=== PATIENT | female | born 1960 | race Caucasian/White ===

== ENCOUNTER → 2018-01-27 | Outpatient (CLI) | payer OTHER | LOC: RAD 01-25 11:47 | DX: Z12.31 Encounter for screening mammogram for malignant neoplasm of breast (principal) ==

== ENCOUNTER → 2018-11-05 | Outpatient (CLI) | payer OTHER | LOC: ULTRA 10:50 | DX: F45.8 Other somatoform disorders (principal) ==

== ENCOUNTER → 2019-02-01 | Outpatient (CLI) | payer OTHER | LOC: RAD 01:39 | DX: Z12.31 Encounter for screening mammogram for malignant neoplasm of breast (principal) ==

== ENCOUNTER → 2020-03-27 | Outpatient (CLI) | payer OTHER | LOC: RAD 03-26 11:07 | DX: Z12.31 Encounter for screening mammogram for malignant neoplasm of breast (principal) ==

== ENCOUNTER → 2021-04-01 | Outpatient (CLI) | payer OTHER | LOC: RAD 09:37 | PROVIDERS: ATTEND Family Medicine | DX: Z12.31 Encounter for screening mammogram for malignant neoplasm of breast (principal) ==

== ENCOUNTER → 2021-06-26 | Outpatient (CLI) | payer OTHER | LOC: MRI 09:28 | PROVIDERS: ATTEND Nurse Practitioner | DX: H53.413 Scotoma involving central area, bilateral (principal); J32.1 Chronic frontal sinusitis; J32.0 Chronic maxillary sinusitis; J32.2 Chronic ethmoidal sinusitis; H53.9 Unspecified visual disturbance ==